=== PATIENT | female | born 1975 | race Caucasian/White ===

== ENCOUNTER → 2017-01-20 | Outpatient (CLI) | payer OTHER ==
[2017-01-20 17:43] LABS: BASO % 0.3 %; BASO ABS # 0.02 K/uL (0-0.2); COMPLETE YES; EOS % 3.6 %; HEMATOCRIT 39.7 % (37-47); IG% 0.3 %; LYMPH % 35.7 %; MEAN CELL VOLUME 89.4 fL (80-100); MEAN CORPUSCULAR HEMOGLOBIN 30.6 pg (25-34); MEAN CORPUSCULAR HGB CONC 34.3 g/dl (32-36); MEAN PLATELET VOLUME 9.2 fL (7.4-10.4); MONO % 6.9 %; NEUT % 53.2 %; PLATELET COUNT 281 K/uL (130-400); RED BLOOD COUNT 4.44 M/uL (4.2-5.4); WHITE BLOOD COUNT 7.28 K/uL (4.8-10.8)
[2017-01-20 19:09] LABS: BLOOD UREA NITROGEN 11 mg/dl (7-18); CALCIUM 9.2 mg/dl (8.5-10.1); CARBON DIOXIDE 24 mmol/L (21-32); CHLORIDE 105 mmol/L (98-107); CREATININE 0.85 mg/dl (0.60-1.20); GLUCOSE 86 mg/dl (70-99); POTASSIUM 3.9 mmol/L (3.5-5.1); SODIUM 139 mmol/L (136-145)
== END | disposition home or self-care (01) ==
LOC: C.LAB1850 17:10
PROVIDERS: ATTEND Family Medicine
DX: R55 Syncope and collapse (principal)

== ENCOUNTER → 2017-12-07 | Outpatient (CLI) | payer OTHER ==
--- NOTE | 2017-12-08 15:29 | MAMMOGRAPHY REPORT ---
BILATERAL FIRST EVER DIGITAL SCREENING MAMMOGRAM TOMOSYNTHESIS WITH CAD: 12/07/2017 CLINICAL HISTORY: Routine screening. Baseline exam. TECHNIQUE: Breast tomosynthesis in addition to standard 2D mammography was performed. Current study was also evaluated with a Computer Aided Detection (CAD) system. COMPARISON: No prior exams were available for comparison. BREAST COMPOSITION: There are scattered areas of fibroglandular density in both breasts. FINDINGS: There is a 10 mm focal asymmetry in the lower inner middle one third of the left breast fo r which additional targeted ultrasound and possible additional mammographic views are recommended. A possible grouping of microcalcifications in the retroareolar anterior right breast, for which additi onal spot magnification views are recommended. No other suspicious mass, architectural distortion or cluster of microcalcifications is seen bilwalia eulalia. IMPRESSION: ACR BI-RADS CATEGORY 0: INCOMPLETE EVALUATION: NEED ADDITIONAL IMAGING EVALUATION The 10 mm focal asymmetry in the lower inner left breast and possible grouped microcalcifications in the retroareolar right breast need additional imaging evaluation. The patient will be called to schedule an appointment. Approximately 10% of breast cancers are not detected with mammography. A negative mammographic report should not delay biopsy if a clinically suggestive mass is present. Thu Calderon M.D. ay/:12/07/2017 16:21:30 Digital Assistant: Meghan VARELA)(Ramonita), [facility] letter sent: Addl Imaging 0 BI-RADS Code: ACR BI-RADS Category 0: Incomplete Evaluation: Need Additional Imaging Evaluation
== END | disposition home or self-care (01) ==
LOC: C.MAMM 11:25
PROVIDERS: ATTEND Family Medicine
DX: Z12.31 Encounter for screening mammogram for malignant neoplasm of breast (principal); N64.89 Other specified disorders of breast

== ENCOUNTER → 2017-12-14 | Outpatient (CLI) | payer OTHER ==
--- NOTE | 2017-12-14 14:30 | MAMMOGRAPHY REPORT ---
BILATERAL DIGITAL DIAGNOSTIC MAMMOGRAM TOMOSYNTHESIS AND TARGETED LEFT ULTRASOUND: 12/14/2017 CLINICAL HISTORY: 42-year-old woman called back from baseline screening mammogram for microcalcificat ions in the retroareolar right breast and a focal asymmetry in the left lower inner quadrant. No fam amara history of breast cancer. TECHNIQUE: Spot magnification right CC, ML and spot compression tomosynthesis left CC and MLO views were obtained. COMPARISON: Comparison is made to exam dated: 12/07/2017 mammogram - [facility]. BREAST COMPOSITION: There are scattered areas of fibroglandular density in both breasts. FINDINGS: The spot magnification views of the right breast demonstrate scattered punctate benign-sai earing microcalcifications. There is no suspicious grouping or cluster of microcalcifications. The microcalcifications are considered benign and no further close follow-up is needed at this time. Spot compression tomosynthesis views of the left breast demonstrate a persistent focal asymmetry eder uring 9 x 27 x 14 mm in the lower inner middle one third of the breast. No associated architectural distortion or calcification. Further characterization with ultrasound was performed. Targeted ultrasound was performed in the lower inner quadrant of the left breast. In the 7:00 axis, 5 cm from the nipple, there is an island of dense glandular tissue with interspersed hypoechoic tubul ar structures representing ducts. This could represent an island of glandular tissue or a benign ent ity such as PASH. There are no suspicious mammographic or sonographic features. No suspicious solid mass. A short interval follow-up left diagnostic tomosynthesis mammogram and repeat ultrasound is r ecommended to ensure stability in 6 months. IMPRESSION: ACR-BI-RADS CATEGORY 3: PROBABLY BENIGN, TARGETED ULTRASOUND ACR-BI-RADS CATEGORY 3: PRO BABLY BENIGN 1. Scattered punctate benign-appearing microcalcifications in the right breast, without evidence of a suspicious grouping or cluster of calcifications. The calcifications are considered benign given t he scattered nature and no further close follow-up is needed at this time. 2. Persistent 27 mm focal asymmetry in the lower inner middle one third of the left breast, with a p robable island of dense glandular tissue in the 7:00 left breast as the sonographic correlate. Altho ugh this most likely represents the patient's baseline parenchyma, a short interval follow-up left di agnostic tomosynthesis mammogram and repeat ultrasound is recommended to ensure stability, given that no prior mammograms are available to ensure long-term stability. These results and recommendations were discussed with the patient at the time of the exam. Approximately 10% of breast cancers are not detected with mammography. A negative mammographic report should not delay biopsy if a clinically suggestive mass is present. Thu Calderon M.D. ay/:12/14/2017 12:07:03 Make Up Artist: Meghan BERKOWITZ(Juan)(Ramonita), [facility] letter sent: Follow Up Recommended 3 BI-RADS Code: ACR-BI-RADS Category 3: Probably Benign Ultrasound BI-RADS: ACR-BI-RADS Category 3: Pr obably Benign
== END | disposition home or self-care (01) ==
LOC: C.MAMM 11:21
PROVIDERS: ATTEND Family Medicine
DX: N64.9 Disorder of breast, unspecified (principal); R92.0 Mammographic microcalcification found on diagnostic imaging of breast